=== PATIENT | female | born 1960 | race Caucasian/White ===

== ENCOUNTER 2023-11-30 12:30 | Emergency (ER) | payer BC, MEDICARE, SELFPAY ==
[2023-11-30 12:35] VITALS: BP 109/65; PULSE 77; RESP 16; TEMP 35.8; O2SAT 94; BMI 30.2
--- NOTE | 2023-11-30 14:25 | CRLHL7_ITS ---
For Patients: As a result of the Century Cures Act, medical imaging exams and procedure reports are released immediately into your electronic medical record. You may view this report before your referring provider. If you have questions, please contact your health care provider. Indication: Diffuse abdominal pain Technique: CT abdomen/pelvis with IV contrast, 79 mL Isovue 370 Comparison: None Findings: Lower thorax: Minimal bibasilar linear atelectasis/scarring. Mediastinal lipomatosis. The heart is normal in size. Abdomen/pelvis: The liver is unremarkable in appearance. Postsurgical changes of cholecystectomy with expected mild postsurgical biliary ductal dilatation. The spleen is unremarkable in appearance. The pancreas is atrophic, but otherwise unremarkable in appearance. No adrenal nodules. The bilateral kidneys are within normal limits in size and perfused in a normal fashion. No suspicious enhancing renal masses or lesions. No renal calculi or hydroureteronephrosis. The bladder is unremarkable in appearance. Postsurgical changes of hysterectomy. No suspicious adnexal masses or lesions. Small hiatal hernia. There is no evidence of bowel obstruction or inflammation. No free fluid or free air. No abscess. There are no pathologically enlarged lymph nodes throughout the abdomen or pelvis. No abdominal aortic aneurysm. Calcified and noncalcified atherosclerosis of the aortoiliac system and its branches. Soft tissue/musculoskeletal: Diffuse muscular atrophy with fatty infiltration. Along the lateral margin of the right gluteus davina muscle is a focal region of likely scarring with some internal dystrophic calcifications and adjacent skin thickening measuring approximately 4.7 centimeters in greatest dimension (craniocaudal). Remote compression deformities of the L1, L2, and L3 vertebral bodies with retropulsed fracture fragments at the superior endplate of the L2 vertebral body narrowing affective AP spinal canal diameter to approximately 6 millimeters. Impression: 1. No CT evidence of an acute process involving the abdomen or pelvis. 2. Incidental findings as detailed above. Please note that all CT scans at this facility use dose modulation, iterative reconstruction, and/or weight-based dosing when appropriate to reduce radiation dose to as low as reasonably achievable. Dictated by Paul Rivas MD @ 11/30/2023 5:47:07 PM (Electronically Signed)
[2023-11-30 14:51] LABS: Appearance Urine Clear (Clear); Bilirubin Urine Negative (Negative); Blood Urine Negative (Negative); Color Urine Dark yellow (Yellow); Glucose Urine Negative (Negative); Ketones Urine Negative (Negative); Leukocyte Esterase Urine Negative (Negative); Nitrite Urine Negative (Negative); Protein Urine Negative (Negative); Specific Gravity Urine 1.025 (1.000-1.030); Urobilinogen Urine 0.2 (0.2-1.0); pH Urine 6.5 (5.0-8.5)
[2023-11-30 14:51] LABS: Lactate* 0.7 mmol/L (0.5-1.9)
[2023-11-30 14:52] LABS: Basophils Absolute Auto 0.03 K/uL (0.00-0.30); Basophils Percent Auto 0.4 % (0.0-3.0); Eosinophils Absolute Auto 0.21 K/uL (0.00-0.50); Eosinophils Percent Auto 2.8 % (0.0-7.0); Hematocrit 40.6 % (33.0-51.0); Hemoglobin* 13.6 gm/dL (12.0-16.0); Immature Granulocytes Abs Auto 0.01 K/uL (0.00-0.30); Immature Granulocytes Pct Auto 0.1 %; Lymphocytes Absolute Auto 2.93 K/uL (0.90-2.90); Lymphocytes Percent Auto 38.8 % (20-44); Mean Corpuscular HGB Conc 34 gm/dL (32-36); Mean Corpuscular Hemoglobin 32 pg (26-34); Mean Corpuscular Volume 96 fL (80-100); Monocytes Percent Auto 8.1 % (0.0-11.0); Neutrophils Absolute Auto 3.77 K/uL (1.7-7.0); Neutrophils Percent Auto 49.8 % (42.0-72.0); Platelet Count* 158 K/uL (140-440); RDW Coefficient of Variation % 15.7 % (11.5-15.5); Red Blood Count 4.23 m/uL (4.00-5.20); White Blood Count* 7.56 K/uL (4.50-11.00)
[2023-11-30 14:55] LABS: Slide Review Reflex No
[2023-11-30 15:13] LABS: Albumin* 4.7 g/dL (3.3-5.0); Prothrombin Time 12.7 Seconds
[2023-11-30 15:14] LABS: Chloride* 103 mmol/L (96-114); Potassium* 4.1 mmol/L (3.6-5.1); Sodium* 137 mmol/L (135-149)
[2023-11-30 15:16] LABS: Alanine Aminotransferase* 29 U/L (4-35); Alkaline Phosphatase* 114 U/L (40-150); Aspartate Amino Transferase* 43 U/L (12-35); Bilirubin Direct* 0.2 mg/dL (0.0-0.5); Bilirubin Total* 0.3 mg/dL (0.1-1.5); Creatinine* 0.6 mg/dL (0.5-1.5); Est. Creatinine Clearance* 43.45; Estimated Glomerular Filt Rate 101 ml/min; Lipase* 25 U/L (23-300); Total Protein* 7.7 g/dL (6.0-8.3)
[2023-11-30 15:17] LABS: Anion Gap 5 mEq/L (7-15); Blood Urea Nitrogen* 17 mg/dL (7-30); Carbon Dioxide* 29 mmol/L (20-32)
[2023-11-30 15:18] LABS: Calcium* 9.5 mg/dL (8.4-10.6); Glucose* 85 mg/dL (60-115)
[2023-11-30 15:27] LABS: C Reactive Protein* < 0.5 mg/dL (0.5-1.0)
[2023-11-30 15:46] LABS: Erythrocyte SedimentationRate* 7 mm/hr (2-20)
--- NOTE | 2023-11-30 16:12 | ED_ITS ---
HPI - General Adult General Chief complaint: Abdominal Pain Stated complaint: Abdominal pain pressure Time Seen by Provider: 11/30/23 14:14 Source: patient Mode of arrival: ambulatory Limitations: no limitations History of Present Illness HPI narrative: Patient is a 63-year-old female presenting today with abdominal pain. Patient states that she has had abdominal pain for approximately 11 months. However, she is also concerned because the girth of her abdomen has been increasing to the point where her normal clothes do not fit any more. 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 She states that she was hospitalized in the ICU for quite some time last year because all of her organs had shut down. She states that she has been exactly 1 year sober as of yesterday. She is congratulated on that. She denies nausea, vomiting, fevers, chills. She denies diarrhea. She states that she was diagnosed with H pylori and that she took all of the antibiotics. She continues to take daily pantoprazole. She is unsure if her weight is going up or down. She does not feel short of breath. She states that he then light touch across the abdominal wall causes her significant discomfort at this point. She feels bloated and uncomfortable after meals. She denies any dysuria, increased urinary frequency or urgency. She denies any skin or hair changes. Related Data Home Medications ?Medication ?Instructions ?Recorded ?Confirmed alendronate 70 mg tablet 70 mg PO QWEEK 11/30/23 11/30/23 buspirone 10 mg tablet 10 mg PO BID 11/30/23 11/30/23 fluoxetine 40 mg capsule 40 mg PO DAILY 11/30/23 11/30/23 gabapentin 300 mg capsule 300 mg PO TID 11/30/23 11/30/23 hydroxyzine HCl 50 mg tablet 50 mg PO TID 11/30/23 11/30/23 modafinil 200 mg tablet 200 mg PO DAILY 11/30/23 11/30/23 naltrexone 50 mg tablet 50 mg PO BID 11/30/23 11/30/23 pantoprazole 40 mg tablet,delayed 40 mg PO DAILY 11/30/23 11/30/23 release sucralfate 1 gram tablet 1 g PO TID 11/30/23 11/30/23 thiamine HCl (vitamin B1) 100 mg 100 mg PO DAILY 11/30/23 11/30/23 tablet Review of Systems Status of ROS: Reports: 10 or more systems reviewed and unremarkable except as noted in History and below PFSH [facility] Medical History Alcohol abuse ?F10.10 - Alcohol abuse, uncomplicated (ICD-10) Social History How often do you have a drink containing alcohol: never AUDIT-C Alcohol total score: 0 Non-prescribed substance use: denies use service: No Exam Narrative: Exam Narrative: Well-nourished well-developed patient in no acute distress. Alert and oriented. Answers questions appropriately. Normal affect, her mood is a bit disgruntled. Thoughts are goal oriented and rational. No tangential or magical thinking noted. Patient speaks in full sentences without needing to catch her breath. HEENT: Normocephalic atraumatic. Pupils are equally round reactive to light. Extraocular muscles are intact. Conjunctivae are moist without any icterus noted. Moist mucous membranes. Posterior pharynx is normal. Neck is soft without any lymphadenopathy or thyromegaly. No masses are appreciated. Cardiovascular: Heart is regular rate and rhythm S1 and S2 are present without any murmurs. Lungs: Clear to auscultation bilaterally no wheezes rhonchi or rales are appreciated. Patient takes deep breaths without any discomfort. Abdomen: Protuberant and soft with normal bowel sounds. Patient yells in pain and firms up her abdominal wall with light touch of the abdominal wall. Because of this I cannot assess for organomegaly and I cannot assess for ascites or other masses. Extremities: Bilateral lower extremities are without edema. Normal DP and PT pulses. Skin: Well perfused without any obvious rashes. Const: Vital Signs, click to edit/add: Vital Signs - 24 hr 11/30/23 12:35 Temperature 96.5 F L Pulse Rate [Pulse Oximeter] 77 Respiratory Rate 16 Blood Pressure [Ri ght Upper Arm] 109/65 Pulse Oximetry 94 Oxygen Delivery Me thod Room Air Course Course ED Course: CBC was on remarkable. INR was normal. Normal chemistries. LFTs are unremarkable. Normal CRP. Normal lipase. Normal TSH. Normal urine analysis. We will proceed with an abdominal CT to rule out masses or fluid collections. This was unremarkable. Discussed results with the patient. She does have a GI appointment in February. Encouraged her to keep this appointment. We discussed possibility of gastroparesis causing her symptoms. Patient had no other questions. Vital Signs Vital signs: Initial Vital Signs Temperature 96.5 F L 11/30/23 12:35 Temperature Source Temporal Artery Scan 11/30/23 12:35 Pulse Rate 77 11/30/23 12:35 Pulse Rhythm Regular 11/30/23 12:35 Pulse Strength 3+ Normal 11/30/23 12:35 Respiratory Rate 16 11/30/23 12:35 Blood Pressure 109/65 11/30/23 12:35 Blood Pressure Mean 79 11/30/23 12:35 Blood Pressure Position Sitting 11/30/23 12:35 Pulse Oximetry 94 11/30/23 12:35 Oxygen Delivery Method Room Air 11/30/23 12:35 Vital Signs Temperature 96.5 F L 11/30/23 12:35 Pulse Rate 77 11/30/23 12:35 Respiratory Rate 16 11/30/23 12:35 Blood Pressure 109/65 11/30/23 12:35 Pulse Oximetry 94 11/30/23 12:35 Oxygen Delivery Method Room Air 11/30/23 12:35 Temperature 96.5 F L 11/30/23 12:35 Pulse Rate 77 11/30/23 12:35 Respiratory Rate 16 11/30/23 12:35 Blood Pressure 109/65 11/30/23 12:35 Pulse Oximetry 94 11/30/23 12:35 Oxygen Delivery Method Room Air 11/30/23 12:35 Medical Decision Making MDM Narrative Medical decision making narrative: 63-year-old female with abdominal pain for almost 1 year. Workup was unremarkable today. Recommend she follow up with GI as scheduled. Lab Data Lab results reviewed: Yes I reviewed the patient's lab results Labs: Lab Results 11/30/23 11/30/23 Range/Units 14:30 14:45 WBC 7.56 (4.50-11.00) K/uL RBC 4.23 (4.00-5.20) m/uL Hgb 13.6 (12.0-16.0) gm/dL Hct 40.6 (33.0-51.0) % MCV 96 (80-100) fL MCH 32 (26-34) pg MCHC 34 (32-36) gm/dL RDW Coeff of Wilfrido 15.7 H (11.5-15.5) % Plt Count 158 (140-440) K/uL Neut % (Auto) 49.8 (42.0-72.0) % Lymph % (Auto) 38.8 (20-44) % Elbert % (Auto) 8.1 (0.0-11.0) % Eos % (Auto) 2.8 (0.0-7.0) % Baso % (Auto) 0.4 (0.0-3.0) % Neut # (Auto) 3.77 (1.7-7.0) K/uL Lymph # (Auto) 2.93 H (0.90-2.90) K/uL Elbert # (Auto) 0.60 (0.00-0.90) K/UL Eos # (Auto) 0.21 (0.00-0.50) K/uL Baso # (Auto) 0.03 (0.00-0.30) K/uL Abs Immat Gran (auto) 0.01 (0.00-0.30) K/uL Imm/Tot Granulo (auto) 0.1 % ESR 7 (2-20) mm/hr INR 0.90 L (0.91-1.10) Sodium 137 (135-149) mmol/L Potassium 4.1 (3.6-5.1) mmol/L Chloride 103 (96-114) mmol/L Carbon Dioxide 29 (20-32) mmol/L Anion Gap 5 L (7-15) mEq/L BUN 17 (7-30) mg/dL Creatinine 0.6 (0.5-1.5) mg/dL Estimated Creat Clear 43.45 Estimated GFR 101 ml/min Glucose 85 (60-115) mg/dL Lactate 0.7 (0.5-1.9) mmol/L Calcium 9.5 (8.4-10.6) mg/dL Total Bilirubin 0.3 (0.1-1.5) mg/dL Direct Bilirubin 0.2 (0.0-0.5) mg/dL AST 43 H (12-35) U/L ALT 29 (4-35) U/L Alkaline Phosphatase 114 (40-150) U/L C-Reactive Protein < 0.5 L (0.5-1.0) mg/dL Total Protein 7.7 (6.0-8.3) g/dL Albumin 4.7 (3.3-5.0) g/dL Lipase 25 (23-300) U/L TSH 1.690 (0.270-4.20) uIU/mL Urine Color Dark yellow (Yellow) Urine Appearance Clear (Clear) Urine pH 6.5 (5.0-8.5) Ur Specific [place] 1.025 (1.000-1.030) Urine Protein Negative (Negative) Urine Glucose (UA) Negative (Negative) Urine Ketones Negative (Negative) Urine Blood Negative (Negative) Urine Nitrite Negative (Negative) Urine Bilirubin Negative (Negative) Urine Urobilinogen 0.2 (0.2-1.0) Ur Leukocyte Esterase Negative (Negative) Urine RBC 0-2 (0-2) Urine WBC 0-2 (0-5) Ur Squamous Epith Cells Few (None-Few) Urine Bacteria Few A (None) Imaging Data CT scan - abdomen: Attestation: I have reviewed the pertinent imaging results. Radiologist's impression: CT abdomen/pelvis with IV contrast, 79 mL Isovue 370 Comparison: None Findings: Lower thorax: Minimal bibasilar linear atelectasis/scarring. Mediastinal lipomatosis. The heart is normal in size. Abdomen/pelvis: The liver is unremarkable in appearance. Postsurgical changes of cholecystectomy with expected mild postsurgical biliary ductal dilatation. The spleen is unremarkable in appearance. The pancreas is atrophic, but otherwise unremarkable in appearance. No adrenal nodules. The bilateral kidneys are within normal limits in size and perfused in a normal fashion. No suspicious enhancing renal masses or lesions. No renal calculi or hydroureteronephrosis. The bladder is unremarkable in appearance. Postsurgical changes of hysterectomy. No suspicious adnexal masses or lesions. Small hiatal hernia. There is no evidence of bowel obstruction or inflammation. No free fluid or free air. No abscess. There are no pathologically enlarged lymph nodes throughout the abdomen or pelvis. No abdominal aortic aneurysm. Calcified and noncalcified atherosclerosis of the aortoiliac system and its branches. Soft tissue/musculoskeletal: Diffuse muscular atrophy with fatty infiltration. Along the lateral margin of the right gluteus davina muscle is a focal region of likely scarring with some internal dystrophic calcifications and adjacent skin thickening measuring approximately 4.7 centimeters in greatest dimension (craniocaudal). Remote compression deformities of the L1, L2, and L3 vertebral bodies with retropulsed fracture fragments at the superior endplate of the L2 vertebral body narrowing affective AP spinal canal diameter to approximately 6 millimeters. Impression: 1. No CT evidence of an acute process involving the abdomen or pelvis. 2. Incidental findings as detailed above. Discharge Plan Discharge Clinical Impression: Abdominal pain Patient Disposition: Home, Self-Care Condition: Stable Additional Instructions: Your workup was unremarkable today, no life-threatening abnormalities were noted. Can try Gas-X or Gaviscon before bed. Recommend you keep your appointment with your GI physician to discuss next steps. Prescriptions: No Action alendronate 70 mg tablet 70 mg PO QWEEK buspirone 10 mg tablet 10 mg PO BID fluoxetine 40 mg capsule 40 mg PO DAILY gabapentin 300 mg capsule 300 mg PO TID hydroxyzine HCl 50 mg tablet 50 mg PO TID naltrexone 50 mg tablet 50 mg PO BID pantoprazole 40 mg tablet,delayed release (DR/EC) 40 mg PO DAILY sucralfate 1 gram tablet 1 g PO TID thiamine HCl (vitamin B1) 100 mg tablet 100 mg PO DAILY modafinil 200 mg tablet 200 mg PO DAILY Hold Instructions: last filled 08/23/23 Follow Up/Referrals: Provider,Not a Local [Primary Care Provider] - Stand Alone Forms: [employer] Info Instructions
[2023-11-30 16:14] LABS: Bacteria Urine Few; RBC Urine 0-2 (0-2); Squamous Epithelial Cell Urine Few (None-Few); WBC Urine 0-2 (0-5)
[2023-11-30 17:00] VITALS: BP 123/74; PULSE 80; RESP 16; O2SAT 96
[2023-12-01 14:30] LABS: H pylori Ag Stool* Negative (Negative)
== END 2023-11-30 18:16 | disposition home or self-care (01) ==
PROVIDERS: Emergency Provider Family Medicine
DX: R10.9 Unspecified abdominal pain (principal)
CPT/HCPCS: 36415; 74177; 80048; 80076; 81001; 83605; 83690; 84443; 85025; 85610; 85651; 86140; 87086; 87338; 99283; 99284; Q9967

== ENCOUNTER 2025-01-30 11:02 | Outpatient (CLI) | payer MEDICARE, SELFPAY | END 2025-01-30 11:03 | disposition home or self-care (01) | LOC: AMB 02-04 20:14 | PROVIDERS: Visit Provider Student in an Organized Health Care Education/Training Program | DX: R06.09 Other forms of dyspnea (principal) | CPT/HCPCS: A0425; A0429 ==

== ENCOUNTER 2025-01-30 11:28 | Emergency (ER) | payer MEDICARE, SELFPAY ==
[2025-01-30] VITALS (15 sets, daily range): BP systolic 107–119; BP diastolic 61–76; PULSE 66–82; RESP 14–31; TEMP 36.6; O2SAT 86–98; BMI 37.8
--- NOTE | 2025-01-30 11:56 | CRLHL7_ITS ---
For Patients: As a result of the Century Cures Act, medical imaging exams and procedure reports are released immediately into your electronic medical record. You may view this report before your referring provider. If you have questions, please contact your health care provider. INDICATION: Lung nodule. TECHNIQUE: CT chest without contrast. COMPARISON: November 28, 2022. FINDINGS: Lungs and pleura: Scattered peribronchial thickening/mucous plugging, most pronounced in the right bronchi with streaky right middle lobe and bibasilar consolidations. No suspicious nodules or infiltrates. No pleural effusions, pleural thickening, or pneumothorax. Heart and vasculature: Heart size is normal. Coronary artery calcifications. Thoracic aorta and pulmonary artery are normal in caliber. Lymph nodes/mediastinum: No mediastinal, hilar, or axillary adenopathy. Chest wall: No masses. Upper abdomen: No significant findings. Bones: Chronic T9 compression deformity. Chronic bilateral rib deformities. IMPRESSION: No acute intrathoracic abnormality. Scattered peribronchial thickening/mucous plugging, most pronounced in the right bronchi with streaky right middle lobe and bibasilar consolidations, likely aspiration pneumonitis/atelectasis. Please note that all CT scans at this facility use dose modulation, iterative reconstruction, and/or weight-based dosing when appropriate to reduce radiation dose to as low as reasonably achievable. Dictated by Andres Blas MD @ 01/30/2025 1:34:20 PM (Electronically Signed)
--- NOTE | 2025-01-30 11:56 | CRLHL7_ITS ---
For Patients: As a result of the Century Cures Act, medical imaging exams and procedure reports are released immediately into your electronic medical record. You may view this report before your referring provider. If you have questions, please contact your health care provider. INDICATION: Left flank tenderness. TECHNIQUE: CT abdomen and pelvis acquired with 95 cc Isovue 370 IV contrast. COMPARISON: November 30, 2023. FINDINGS: Lower chest: Scattered atelectasis. Small hiatal hernia. Liver: Mild decreased hepatic attenuation. No suspicious masses. Gallbladder and bile ducts: Prior cholecystectomy with reservoir effect. Pancreas: Unremarkable. No mass or inflammation. Spleen: Unremarkable. Normal in size. No masses. Adrenal glands: Unremarkable. No nodules. Kidneys: Tiny cortical hypodensities, too small to characterize.. No suspicious masses, stones, or hydronephrosis. GI tract: Colonic diverticulosis without diverticulitis. Normal in caliber. No sign of mass or inflammation. Prior appendectomy. Vasculature: Aortoiliac arterial calcifications. Abdominal aorta is normal in caliber. Mesenteric arteries are patent. Lymph nodes: No lymphadenopathy. Peritoneum/Abdominal Wall: Unremarkable. No sign of mass or infiltration. No free air or significant free fluid. Pelvis: Prior hysterectomy. Bones: Chronic L1, L2, L3 compression deformities chronic bilateral lower rib deformities. IMPRESSION: No acute intra-abdominal/pelvic abnormality. Chronic findings as above. Please note that all CT scans at this facility use dose modulation, iterative reconstruction, and/or weight-based dosing when appropriate to reduce radiation dose to as low as reasonably achievable. Dictated by Andres Blas MD @ 01/30/2025 1:26:40 PM (Electronically Signed)
--- NOTE | 2025-01-30 12:00 | ED.GENADULT ---
HPI - General Adult General Date Seen: 01/30/25 Chief complaint: Shortness of Breath/Dyspnea Stated complaint: difficulty breathing, lower back pain Time Seen by Provider: 01/30/25 11:46 Source: patient Mode of arrival: EMS Limitations: no limitations History of Present Illness HPI narrative: Patient is a 64-year-old female with a history of alcohol use disorder, COPD, previous left-sided rib fractures from 8 years ago, MS presenting to emergency department for left flank pain. Pain is been going on the past 2 weeks shows no changes. Due to the edges pain not getting any better she called EMS. She has not noticed any dysuria or polyuria. No history of kidney stones. Describes pain as a dull ache. No pain when she is sitting still. Does have pain when she reaches back work with her left arm. Does states she previously broke several ribs there 8 years ago but no other injuries. Also states she is feeling short of breath over the past few days. She has history of COPD chronically is on 2.5 L of oxygen at home. On room air she sats 84-86%. Is currently on 96% on 2.5 L. she states she no longer feels short of breath. Has not had any chest pain. Denies any lightheadedness, dizziness, weakness, numbness, abdominal pain, diarrhea, constipation, nausea, vomiting. Related Data Home Medications ?Medication ?Instructions ?Recorded ?Confirmed alendronate 70 mg tablet 70 mg PO QWEEK 11/30/23 11/30/23 buspirone 10 mg tablet 10 mg PO BID 11/30/23 11/30/23 fluoxetine 40 mg capsule 40 mg PO DAILY 11/30/23 11/30/23 gabapentin 300 mg capsule 300 mg PO TID 11/30/23 11/30/23 hydroxyzine HCl 50 mg tablet 50 mg PO TID 11/30/23 11/30/23 modafinil 200 mg tablet 200 mg PO DAILY 11/30/23 11/30/23 Held on 11/30/23. Instructions: last filled 08/23/23 naltrexone 50 mg tablet 50 mg PO BID 11/30/23 11/30/23 pantoprazole 40 mg tablet,delayed 40 mg PO DAILY 11/30/23 11/30/23 release sucralfate 1 gram tablet 1 g PO TID 11/30/23 11/30/23 thiamine HCl (vitamin B1) 100 mg 100 mg PO DAILY 11/30/23 11/30/23 tablet Allergies Allergy/AdvReac Type Severity Reaction Status Date / Time No Known Drug Allergies Allergy Verified 01/30/25 13:19 Review of Systems Status of ROS: Reports: 10 or more systems reviewed and unremarkable except as noted in History and below [facility] Medical History Alcohol abuse ?F10.10 - Alcohol abuse, uncomplicated (ICD-10) Social History Smoking Status: Current every day smoker What tobacco products do you use: cigarettes Smoking packs per day: 1 Smoking cigarettes per day: 20.0 Do you use any of these nicotine containing products: None How often do you have a drink containing alcohol: 2-4 times a month AUDIT-C Alcohol total score: 2 Non-prescribed substance use: denies use service: No Exam Narrative: Exam Narrative: Const: Well-nourished, Well-developed, in mild distress Eyes: PERRL, no conjunctival injection, and symmetrical lids HENT: Atraumatic external nose and ears. Moist mucous membranes. Neck: Symmetric, trachea midline, No thyromegaly. CVS: RRR, No murmurs or gallops. Peripheral pulses 2+ and equal in all extremities RESP: Unlabored respiratory effort. Clear to auscultation bilaterally. GI: Nontender/Nondistended, No rebound or guarding. Left CVA tenderness MSK:Extremities w/o deformity, Normal Active ROM Skin: Warm, Dry. No rashes or lesions. Neuro: Normal Muscle tone, No focal neurological deficits. Psych: Awake, Alert, & Oriented x3. Appropriate mood and affect. Const: Vital Signs, click to edit/add: Vital Signs - 24 hr 01/30/25 11:34 01/30/25 11:42 01/30/25 11:45 Temperature 98 F Pulse Rate 72 71 Pulse Rate [Left R adial] 73 Respiratory Rate 20 20 Blood Pressure Blood Pressure [Le ft Upper Arm] 110/64 Pulse Oximetry 86 L 96 97 Oxygen Delivery Me thod Room Air Oxygen Flow Rate 01/30/25 11:48 01/30/25 12:00 01/30/25 12:01 Temperature Pulse Rate 76 73 72 Pulse Rate [Left R adial] Respiratory Rate 22 Blood Pressure 107/62 109/71 Blood Pressure [Le ft Upper Arm] Pulse Oximetry 96 96 97 Oxygen Delivery Me thod Nasal Cannula Oxygen Flow Rate 2 01/30/25 12:15 01/30/25 12:16 01/30/25 12:30 Temperature Pulse Rate 72 75 66 Pulse Rate [Left R adial] Respiratory Rate 15 31 H 14 Blood Pressure 119/76 Blood Pressure [Le ft Upper Arm] Pulse Oximetry 97 97 98 Oxygen Delivery Me thod Oxygen Flow Rate 01/30/25 12:53 01/30/25 13:11 01/30/25 13:15 Temperature Pulse Rate 75 77 Pulse Rate [Left R adial] Respiratory Rate 23 31 H 16 Blood Pressure Blood Pressure [Le ft Upper Arm] Pulse Oximetry 89 91 Oxygen Delivery Me thod Oxygen Flow Rate 01/30/25 13:30 01/30/25 13:45 01/30/25 15:25 Temperature Pulse Rate 74 82 Pulse Rate [Left R adial] 72 Respiratory Rate 20 22 16 Blood Pressure Blood Pressure [Le ft Upper Arm] 117/61 Pulse Oximetry 90 93 96 Oxygen Delivery Me thod Nasal Cannula Nasal Cannula Oxygen Flow Rate 2.5 2 Course Vital Signs Vital signs: Initial Vital Signs Temperature 98 F 01/30/25 11:34 Temperature Source Temporal Artery Scan 01/30/25 11:34 Pulse Rate 73 01/30/25 11:34 Respiratory Rate 20 01/30/25 11:34 Blood Pressure 110/64 01/30/25 11:34 Blood Pressure Mean 79 01/30/25 11:34 Pulse Oximetry 86 L 01/30/25 11:34 Oxygen Delivery Method Room Air 01/30/25 11:34 Vital Signs Temperature 98 F 01/30/25 11:34 Pulse Rate 73 01/30/25 11:34 Respiratory Rate 20 01/30/25 11:34 Blood Pressure 110/64 01/30/25 11:34 Pulse Oximetry 86 L 01/30/25 11:34 Oxygen Delivery Method Room Air 01/30/25 11:34 Temperature 98 F 01/30/25 11:34 Pulse Rate 72 01/30/25 15:25 Respiratory Rate 16 01/30/25 15:25 Blood Pressure 117/61 01/30/25 15:25 Pulse Oximetry 96 01/30/25 15:25 Oxygen Delivery Method Nasal Cannula 01/30/25 15:25 Oxygen Flow Rate 2 01/30/25 15:25 Medical Decision Making [facility] Narrative Medical decision making narrative: Patient is a 64-year-old female presenting to the emergency department for left flank pain and shortness of breath. The differential diagnosis of flank pain including vascular causes such as aortic aneurysm, renal vascular issues, aortic dissection, mesenteric ischemia, nephrolithiasis, ureter stricture, pyelonephritis, along with several other GI and gynecological/ causes. Considering the pain is worse with movement this does seem more likely to be musculoskeletal in nature. Will do a CT scan the abdomen pelvis though to better evaluate. Assess check urinalysis for signs of UTI. Will also order CBC, CMP, magnesium viral swabs. The differential diagnosis of shortness of breath is broad and includes common etiologies such as COPD, asthma, pneumonia, viral syndrome, etc. More serious etiologies considered include PE, CHF, coronary artery disease, pneumothorax, aortic dissection, aortic aneurysm. Is she is now back to normal on her home oxygen this is likely just related to her COPD. Lung sounded clear. Will order VBG, EKG, troponin. Will also order an ETOH level Lab work shows no concerning abnormalities other than she is having alcohol level 0.26%. CT scans interpreted by myself and the radiologist independently show some peribronchial thickening and bibasilar consolidation/likely aspiration pneumonitis versus atelectasis. She is satting at her baseline on her 2.5 L and no longer is feeling short of breath. She denies any vomiting. Seems more likely to be atelectasis at this time. Abdomen pelvis CT showed no concerning abnormalities. She is doing well this time. EKG interpreted by myself shows no acute concerning abnormalities. Troponin within normal limits. Considering length of symptoms repeat troponin is not indicated. Heart rate showed no signs of arrhythmias on the heart monitor. I spoke to her and her son was in the room. He states she is a chronic alcoholic in she made comments about suicide yesterday and today. She was drunk at that time the believe. She has never made suicidal comments before. She does have a brother who committed suicide in 2016. She denies any thoughts of suicide. She states she just said it to get attention. I spoke to the son and he would like her to be evaluated by [facility]. This was done. [facility] believe she is low risk. I also agree she is low risk. She does states she has a psychiatric appointment this upcoming Wednesday when she has plans on going to. I spoke to her about detox but she declined states she was not want to stop drinking. She will be discharged. Lab Data Labs: Lab Results 01/30/25 01/30/25 01/30/25 Range/Units 11:56 12:15 12:45 WBC 6.20 (4.50-11.00) K/uL RBC 4.06 (4.00-5.20) m/uL Hgb 13.6 (12.0-16.0) gm/dL Hct 40.6 (33.0-51.0) % MCV 100 (80-100) fL MCH 34 (26-34) pg MCHC 34 (32-36) gm/dL RDW Coeff of Wilfrido 16.1 H (11.5-15.5) % Plt Count 155 (140-440) K/uL Neut % (Auto) 39.6 L (42.0-72.0) % Lymph % (Auto) 47.1 H (20-44) % [place] % (Auto) 9.0 (0.0-11.0) % Eos % (Auto) 4.0 (0.0-7.0) % Baso % (Auto) 0.3 (0.0-3.0) % Neut # (Auto) 2.50 (1.7-7.0) K/uL Lymph # (Auto) 2.90 (0.90-2.90) K/uL [place] # (Auto) 0.60 (0.00-0.90) K/UL Eos # (Auto) 0.25 (0.00-0.50) K/uL Baso # (Auto) 0.02 (0.00-0.30) K/uL Abs Immat Gran (auto) 0.00 (0.00-0.30) K/uL Imm/Tot Granulo (auto) 0.0 % VBG pH 7.328 (7.32-7.43) VBG pCO2 58 H (40-50) mmHG VBG pO2 41.2 (25-47) mmHG VBG HCO3 30 H (21-28) mmol/L Sodium 142 (135-149) mmol/L Potassium 4.0 (3.6-5.1) mmol/L Chloride 100 (96-114) mmol/L Carbon Dioxide 28 (20-32) mmol/L Anion Gap 14 (7-15) mEq/L BUN 14 (7-30) mg/dL Creatinine 0.6 (0.5-1.5) mg/dL Estimated Creat Clear 42.89 Estimated GFR 100 ml/min Glucose 75 (60-115) mg/dL Calcium 8.9 (8.4-10.6) mg/dL Magnesium 1.6 (1.5-2.6) mg/dL Total Bilirubin 0.4 (0.1-1.5) mg/dL AST 51 H (12-35) U/L ALT 29 (4-35) U/L Alkaline Phosphatase 109 (40-150) U/L Troponin I < 0.01 (0.01-0.04) ng/mL Total Protein 7.1 (6.0-8.3) g/dL Albumin 4.2 (3.3-5.0) g/dL Urine Color Yellow (Yellow) Urine Appearance Clear (Clear) Urine pH 6.0 (5.0-8.5) Ur Specific [place] 1.010 (1.000-1.030) Urine Protein Negative (Negative) Urine Glucose (UA) Negative (Negative) Urine Ketones Negative (Negative) Urine Blood Negative (Negative) Urine Nitrite Negative (Negative) Urine Bilirubin Negative (Negative) Urine Urobilinogen 0.2 (0.2-1.0) Ur Leukocyte Esterase Negative (Negative) Urine RBC 0-2 (0-2) Urine WBC 0-2 (0-5) Ur Squamous Epith Cells Few (None-Few) Urine Bacteria None (None) Ethyl Alcohol 0.26 H (0.01-0.03) % SARS-CoV-2 (PCR) Negative SARS-CoV-2 (Negative) Influenza Type A (PCR) Negative PCR FLU A (Negative) Influenza Type B (PCR) Negative PCR FLU B (Negative) RSV (PCR) Negative PCR RSV (Negative) POC Creatinine 0.8 (0.6-1.3) mg/dl Imaging Data CT scan chest: Attestation: I have reviewed the pertinent imaging results. Radiologist's impression: No acute intrathoracic abnormality. Scattered peribronchial thickening/mucous plugging, most pronounced in the right bronchi with streaky right middle lobe and bibasilar consolidations, likely aspiration pneumonitis/atelectasis. Please note that all CT scans at this facility use dose modulation, iterative reconstruction, and/or weight-based dosing when appropriate to reduce radiation dose to as low as reasonably achievable. Dictated by Andres Blas MD @ 01/30/2025 1:34:[address] scan abdomen and pelvis: Attestation: I have reviewed the pertinent imaging results. Radiologist's impression: No acute intra-abdominal/pelvic abnormality. Chronic findings as above. Please note that all CT scans at this facility use dose modulation, iterative reconstruction, and/or weight-based dosing when appropriate to reduce radiation dose to as low as reasonably achievable. Dictated by Andres Blas MD @ 01/30/2025 1:26:40 PM ECG Data Attestation: I personally reviewed and interpreted this ECG as follows: Prior ECG tracings: not available for review Interpretation: Normal sinus rhythm with a rate of 73 beats per minute, normal intervals, normal axis, no ST or T-wave abnormalities. Discharge Plan Discharge Clinical Impression: Alcohol intoxication, Flank pain Patient Disposition: Home, Self-Care Condition: Stable Additional Instructions: No concerning abnormalities were seen in your imaging or lab work. It is very important you stop drinking. If he continued drink like this it will kill you. I strongly suggest you start going to alcoholics [facility] and speak with her provider about outpatient treatment for your alcoholism. Prescriptions: No Action alendronate 70 mg tablet 70 mg PO QWEEK buspirone 10 mg tablet 10 mg PO BID fluoxetine 40 mg capsule 40 mg PO DAILY gabapentin 300 mg capsule 300 mg PO TID hydroxyzine HCl 50 mg tablet 50 mg PO TID naltrexone 50 mg tablet 50 mg PO BID pantoprazole 40 mg tablet,delayed release (DR/EC) 40 mg PO DAILY sucralfate 1 gram tablet 1 g PO TID thiamine HCl (vitamin B1) 100 mg tablet 100 mg PO DAILY modafinil 200 mg tablet 200 mg PO DAILY Follow Up/Referrals: Provider,Not a Local [Primary Care Provider, Family Practice] Stand Alone Forms: MyHealth Info Instructions Procedures ABG Interpretation ABG Results: 01/30/25 12:15 VBG pH 7.328 VBG pCO2 58 H VBG pO2 41.2 VBG HCO3 30 H
[2025-01-30 12:22] LABS: Hematocrit* 40.6 % (33.0-51.0); Hemoglobin* 13.6 gm/dL (12.0-16.0); Mean Corpuscular HGB Conc 34 gm/dL (32-36); Mean Corpuscular Hemoglobin 34 pg (26-34); Mean Corpuscular Volume 100 fL (80-100); RDW Coefficient of Variation % 16.1 % (11.5-15.5); Red Blood Count* 4.06 m/uL (4.00-5.20); White Blood Count* 6.20 K/uL (4.50-11.00)
[2025-01-30 12:23] LABS: Immature Granulocytes Abs Auto 0.00 K/uL (0.00-0.30); Immature Granulocytes Pct Auto 0.0 %
[2025-01-30 12:26] LABS: Lymphocytes Absolute Auto 2.90 K/uL (0.90-2.90); Slide Review Reflex No
[2025-01-30 12:28] LABS: Creatinine, Point-of-Care* 0.8 mg/dl (0.6-1.3)
[2025-01-30 12:30] LABS: HCO3 VBG 30 mmol/L (21-28); PCO2 VBG 58 mmHG (40-50); PO2 VBG 41.2 mmHG (25-47); pH VBG 7.328 (7.32-7.43)
[2025-01-30 12:46] LABS: Albumin* 4.2 g/dL (3.3-5.0); Chloride* 100 mmol/L (96-114); Potassium* 4.0 mmol/L (3.6-5.1); Sodium* 142 mmol/L (135-149)
[2025-01-30 12:48] LABS: Blood Urea Nitrogen* 14 mg/dL (7-30); Creatinine* 0.6 mg/dL (0.5-1.5); Est. Creatinine Clearance* 42.89; Estimated Glomerular Filt Rate 100 ml/min
[2025-01-30 12:49] LABS: Appearance Urine Clear (Clear)
[2025-01-30 12:49] LABS: Alanine Aminotransferase* 29 U/L (4-35); Alkaline Phosphatase* 109 U/L (40-150); Anion Gap 14 mEq/L (7-15); Aspartate Amino Transferase* 51 U/L (12-35); Bilirubin Total* 0.4 mg/dL (0.1-1.5); Calcium* 8.9 mg/dL (8.4-10.6); Carbon Dioxide* 28 mmol/L (20-32); Glucose* 75 mg/dL (60-115); Total Protein* 7.1 g/dL (6.0-8.3)
[2025-01-30 12:50] LABS: Ethanol* 0.26 % (0.01-0.03)
[2025-01-30 13:55] LABS: PCR FLU A Negative PCR FLU A (Negative); PCR FLU B Negative PCR FLU B (Negative); PCR RSV Negative PCR RSV (Negative); SARS PCR* Negative SARS-CoV-2 (Negative)
== END 2025-01-30 15:34 | disposition home or self-care (01) ==
PROVIDERS: Emergency Provider Student in an Organized Health Care Education/Training Program
DX: R10.A2 Flank pain, left side (principal); F10.129 Alcohol abuse with intoxication, unspecified; R06.02 Shortness of breath
CPT/HCPCS: 36415; 71250; 74177; 80053; 81001; 82077; 82565; 82803; 83735; 84484; 85025; 87631; 93005; 99284; 99285; Q9967

== ENCOUNTER 2025-01-31 13:00 | Outpatient (CLI) | payer MEDICARE, SELFPAY | END 2025-01-31 13:01 | disposition home or self-care (01) | LOC: AMB 02-05 15:45 | PROVIDERS: Visit Provider Family Medicine | DX: R45.851 Suicidal ideations (principal) | CPT/HCPCS: A0425; A0427 ==

== ENCOUNTER 2025-02-11 17:02 | Outpatient (CLI) | payer MEDICARE, SELFPAY | END 2025-02-11 17:03 | disposition home or self-care (01) | LOC: AMB 02-15 17:56 | PROVIDERS: Visit Provider Student in an Organized Health Care Education/Training Program | DX: R45.851 Suicidal ideations (principal) | CPT/HCPCS: A0425; A0427 ==